=== PATIENT | male | born 2005 | race Caucasian/White ===

== ENCOUNTER 2023-04-26 02:25 | Emergency (ER) | payer SELFPAY | END 2023-04-26 02:53 | disposition home or self-care (01) | LOC: CSHERS 02:25 | DX: Z02.89 Encounter for other administrative examinations (principal); F17.290 Nicotine dependence, other tobacco product, uncomplicated; V89.2XXA Person injured in unspecified motor-vehicle accident, traffic, initial encounter | CPT/HCPCS: 99283 ==